=== PATIENT | female | born 1990 | race American Indian/Alaskan Native ===

== ENCOUNTER 2017-06-10 02:20 | Emergency (ER) | payer MEDICARE, MEDICAID ==
[2017-06-10 02:20] VITALS: BMI 38.9
[2017-06-10 02:44] VITALS: RESP 18; TEMP 98.2
--- NOTE | 2017-06-10 03:31 | ED PDOC ---
Arrival/HPI <Wing Medeiros - Last Filed: 06/10/17 04:28> - General Historian: Patient - History of Present Illness Time/Duration: < week <Deisi Covington - Last Filed: 06/10/17 06:07> - General Chief Complaint: Foreign Body Time Seen by Provider: 06/10/17 03:10 - History of Present Illness Narrative History of Present Illness (Text): 06/10/17 03:31 27 year old with past medical history of asthma presents to the ED after stepping a small piece of broken glass 2 days ago. Patient reports she was able to take out a small piece of glass from her foot initially, but she still feels pain whenever she steps with the left foot. Patient decided to come to the ED to be evaluated today. Denies having headache, fever, chills, shortness of breath, chest pain, nausea, vomiting, numbness or tingling sensation. (Deisi Covington) Past Medical History - Provider Review Nursing Documentation Reviewed: Yes - Past History Past History: No Previous - Infectious Disease Hx of Infectious Diseases: None - Tetanus Immunization Tetanus Immunization: Unknown - Cardiac Hx Cardiac Disorders: No - Pulmonary Hx Asthma: Yes - Neurological Hx Migraine: Yes - HEENT Hx HEENT Disorder: No - Renal Hx Renal Disorder: No - Endocrine/Metabolic Hx Endocrine Disorders: No - Hematological/Oncological Hx Blood Disorders: No - Integumentary Hx Dermatological Disorder: No - Musculoskeletal/Rheumatological Hx Musculoskeletal Disorders: No - Gastrointestinal Hx Gastroesophageal Reflux: Yes - Genitourinary/Gynecological Hx Genitourinary Disorders: No - Psychiatric Hx Anxiety: Yes Hx Bipolar Disorder: Yes Hx Depression: Yes Hx Post Traumatic Stress Disorder: Yes Hx Substance Use: Yes (marijuana) - Surgical History Hx Section: Yes (x3 last 2 weeks ago) Hx Cholecystectomy: Yes - Anesthesia Hx Anesthesia: Yes Hx Anesthesia Reactions: No Hx Malignant Hyperthermia: No <Deisi Covington - Last Filed: 06/10/17 06:07> Family/Social History - Physician Review Nursing Documentation Reviewed: Yes Family/Social History: Unknown Family HX Smoking Status: Former Smoker Hx Alcohol Use: Yes Frequency of alcohol use: Socially Hx Substance Use: Yes (marijuana) <Deisi Covington - Last Filed: 06/10/17 06:07> Allergies/Home Meds <Wing Medeiros - Last Filed: 06/10/17 04:28> <Deisi Covington - Last Filed: 06/10/17 06:07> Allergies/Adverse Reactions: Allergies oxycodone HCl [From Percocet] Allergy (Verified 06/10/17 02:45) ITCHING PCN Allergy (Uncoded 06/10/17 02:45) RASH Review of Systems - Physician Review All systems were reviewed & negative as marked: Yes - Review of Systems Constitutional: Normal. absent: Fatigue, Weight Change Eyes: Normal. absent: Vision Changes, Photophobia ENT: Normal. absent: Hearing Changes, Tinnitus Respiratory: Normal. absent: SOB, Cough Cardiovascular: Normal. absent: Chest Pain, Edema, Calf Pain, Syncope Gastrointestinal: Normal. absent: Abdominal Pain, Stool Changes, Nausea, Vomiting Genitourinary Female: Normal Musculoskeletal: Other (left foot pain with stepping) Skin: Normal. absent: Rash, Pruritis, Cellulitis Neurological: Normal. absent: Headache, Dizziness, Speech Changes Endocrine: Normal. absent: Diaphoresis Hemo/Lymphatic: Normal. absent: Adenopathy Psychiatric: Normal. absent: Anxiety <CovingtonDeisi - Last Filed: 06/10/17 06:07> Physical Exam Vital Signs Reviewed: Yes Temperature: Afebrile Blood Pressure: Normal Pulse: Regular Respiratory Rate: Normal Appearance: Positive for: Well-Appearing, Non-Toxic, Comfortable Pain Distress: None Mental Status: Positive for: Alert and Oriented X 3 - Systems Exam Head: Present: Atraumatic, Normocephalic Pupils: Present: PERRL Extroacular Muscles: Present: EOMI Conjunctiva: Present: Normal Mouth: Present: Moist Mucous Membranes Neck: Present: Normal Range of Motion Respiratory/Chest: Present: Clear to Auscultation, Good Air Exchange. No: Respiratory Distress, Accessory Muscle Use Cardiovascular: Present: Regular Rate and Rhythm, Normal S1, S2. No: Murmurs Abdomen: Present: Normal Bowel Sounds. No: Tenderness, Distention, Peritoneal Signs Back: Present: Normal Inspection Upper Extremity: Present: Normal Inspection. No: Cyanosis, Edema Lower Extremity: Present: Neurovascularly Intact, Other (small dark discoloration <1mm located at left plantar surface proximal to 2nd toe). No: Edema, Swelling, Erythema Neurological: Present: GCS=15, CN II-XII Intact, Speech Normal Skin: Present: Warm, Dry, Normal Color. No: Rashes Psychiatric: Present: Alert, Oriented x 3, Normal Insight, Normal Concentration <Deisi Covington - Last Filed: 06/10/17 06:07> Vital Signs Temp Pulse Resp BP Pulse Ox 06/10/17 04:43 75 18 132/66 99 06/10/17 02:40 98.2 F 78 18 129/54 L 100 Medical Decision Making <Wing Medeiros - Last Filed: 06/10/17 04:28> <Deisi Covington - Last Filed: 06/10/17 06:07> ED Course and Treatment: Impression: Pt seen and evaluated with medical nurse. Pt, whose past medical history includes asthma, presented s/p stepping on glass with her left foot 2 days prior. Pt complaining of pain to the area. Aware and agree with HPI, clinical findings, plan, and management. Plan: -- XR Right Foot -- Reassess and disposition (Wing Medeiros) 06/10/17 04:14 -Left foot xray -Reassess and disposition DDx: left foot foreign body Patient is not complaining of pain. No erythema, no swelling appreciated. No evidence of foreign body or glass noted on foot x ray. (Deisi Covington) - RAD Interpretation Narrative RAD Interpretations (Text): 06/10/17 04:23 Left foot X-ray showed no evidence of foreign body or glass fragment. (Deisi Covington) Radiology Orders: 06/10/17 03:29 FOOT RIGHT 3 VIEWS ROUTINE [RAD] Stat - PA / [employer] / Resident Statement NAREN has reviewed & agrees with the documentation as recorded. NAREN has examined the patient and agrees with the treatment plan. <Wing Medeiros - Last Filed: 06/10/17 04:28> - PA / [employer] / Resident Statement NAREN has reviewed & agrees with the documentation as recorded. NAREN has examined the patient and agrees with the treatment plan. <Deisi Covington - Last Filed: 06/10/17 06:07> Disposition/Present on Arrival <Wing Medeiros - Last Filed: 06/10/17 04:28> - Present on Arrival Any Indicators Present on Arrival: No History of DVT/PE: No History of Uncontrolled Diabetes: No Urinary Catheter: No History of Decub. Ulcer: No History Surgical Site Infection Following: None - Disposition Have Diagnosis and Disposition been Completed?: Yes Disposition Time: 04:24 Patient Plan: Discharge <Deisi Covington - Last Filed: 06/10/17 06:07> - Disposition Diagnosis: Left foot pain Disposition: HOME/ ROUTINE Condition: GOOD Discharge Instructions (ExitCare): Soft Tissue Foreign Body (ED) Additional Instructions: Ana Luisa Cisse, thank you for letting us take care of you today. Your provider was Dr. Medeiros. You were treated for left foot pain. The emergency medical care you received today was directed at your acute symptoms. If you were prescribed any medication, please fill it and take as directed. It may take several days for your symptoms to resolve. Return to the Emergency Department if your symptoms worsen, do not improve, or if you have any other problems. Please contact your doctor or call one of the physicians/clinics you have been referred to that are listed on the Patient Visit Information form that is included in your discharge packet. Bring any paperwork you were given at discharge with you along with any medications you are taking to your follow up visit. Our treatment cannot replace ongoing medical care by a primary care provider (PCP) outside of the emergency department. Instructed patient to follow up with PMD. Thank you for allowing the [facility] team to be part of your care today.
[2017-06-10 04:44] VITALS: BP 132/66; PULSE 75; O2SAT 99
--- NOTE | 2017-06-10 08:10 | RAD ---
PROCEDURE: Right Foot Radiographs. HISTORY: foreign body, glass in left foot COMPARISON: None. FINDINGS: BONES: Bone alignment and mineralization are normal. There is no acute fracture or bone destruction. JOINTS: Normal. SOFT TISSUES: Normal. OTHER FINDINGS: There is no radiopaque foreign body. IMPRESSION: No acute fracture, dislocation or radiopaque foreign body.
== END 2017-06-10 04:43 | disposition home or self-care (01) ==
LOC: ED 02:20
DX: M79.672 Pain in left foot (principal)

== ENCOUNTER 2019-04-17 13:40 | Emergency (ER) | payer MEDICAID, MEDICARE ==
[2019-04-17 14:04] VITALS: BMI 45.8
[2019-04-17 14:10] VITALS: RESP 18
[2019-04-17 15:12] LABS: ALB/GLOB RATIO 1.1 (1.1-1.8); ALT/SGPT 27 U/L (7-56); AST/SGOT 31 U/L (14-36); BLOOD UREA NITROGEN 13 mg/dL (7-21); CALCIUM 9.2 mg/dL (8.4-10.5); GFR NON-AFRICAN AMERICAN > 60
[2019-04-17 15:21] LABS: BASO # 0.01 K/mm3 (0.0-2.0); BASO % 0.1 % (0.0-3.0); EOS # 0.1 (0.0-0.7); HEMOGLOBIN 13.5 g/dL (12.0-16.0); LYMPH # 3.1 (1.2-3.4); MEAN CELL VOLUME 89.1 fl (80.0-105.0); MEAN CORPUSCULAR HEMOGLOBIN 29.5 pg (25.0-35.0); MEAN CORPUSCULAR HGB CONC 33.2 g/dl (31.0-37.0); MONO # 0.3 (0.1-0.6); MONO % 3.4 % (1.0-6.0); RBC 4.57 10^6/uL (3.5-6.1); RED CELL DISTRIBUTION WIDTH 12.7 % (11.5-14.5); WHITE BLOOD COUNT 9.9 10^3/uL (4.5-11.0)
[2019-04-17 15:30] LABS: URINE BILIRUBIN NEGATIVE (NEGATIVE); URINE BLOOD NEGATIVE (NEGATIVE); URINE GLUCOSE (UA) NEGATIVE (NEGATIVE); URINE LEUKOCYTE ESTERASE NEGATIVE Leu/uL (NEGATIVE); URINE PROTEIN NEGATIVE mg/dL (<30 mg/dL); URINE UROBILINOGEN 0.2 E.U./dL (<1 E.U./dL)
[2019-04-17 15:31] LABS: URINE APPEARANCE CLEAR (CLEAR); URINE COLOR YELLOW (YELLOW)
--- NOTE | 2019-04-17 15:41 | ED PDOC ---
Arrival/HPI - General Chief Complaint: High Blood Sugar Time Seen by Provider: 04/17/19 14:00 Historian: Patient - History of Present Illness Narrative History of Present Illness (Text): 04/17/19 17:30 29-year-old female presents today with concerns for elevated blood sugar. 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 She was the first 1 to have her sugar checked and the reading was 390. No medications were given and patient came to the emergency room for further evaluation as her mother is a diabetic. Patient has no history of diabetes. She denies fevers or chills. No chest pain or shortness of breath. She states she has a history of migraines for which she has a slight headache. Patient also states she has been having some urinary frequency and some increased thirst. Upon arrival to the ER the patient's fingerstick was 83. Patient was made aware that her fingerstick was 83 and she then stated that she did not need to be in the hospital if her sugar was good. Past Medical History - Provider Review Nursing Documentation Reviewed: Yes Primary Care Provider: Non [facility] Provider, - Travel History Have you recently traveled outside [place] w/in the past 3 mons?: No - Past History Past History: No Previous - Infectious Disease Hx of Infectious Diseases: None - Tetanus Immunization Tetanus Immunization: Unknown - Cardiac Hx Cardiac Disorders: No - Pulmonary Hx Asthma: Yes - Neurological Hx Migraine: Yes - HEENT Hx HEENT Disorder: No - Renal Hx Renal Disorder: No - Endocrine/Metabolic Hx Endocrine Disorders: No - Hematological/Oncological Hx Blood Disorders: No - Integumentary Hx Dermatological Disorder: No - Musculoskeletal/Rheumatological Hx Musculoskeletal Disorders: No - Gastrointestinal Hx Gastroesophageal Reflux: Yes - Genitourinary/Gynecological Hx Genitourinary Disorders: No - Psychiatric Hx Anxiety: Yes Hx Bipolar Disorder: Yes Hx Depression: Yes Hx Post Traumatic Stress Disorder: Yes Hx Substance Use: Yes (marijuana) - Surgical History Hx Section: Yes (x3 last 2 weeks ago) Hx Cholecystectomy: Yes - Anesthesia Hx Anesthesia: Yes Hx Anesthesia Reactions: No Hx Malignant Hyperthermia: No Family/Social History - Physician Review Nursing Documentation Reviewed: Yes Family/Social History: Unknown Family HX Smoking Status: Light Smoker < 10 Cigarettes Daily Hx Alcohol Use: Yes Hx Substance Use: Yes (marijuana) Allergies/Home Meds Allergies/Adverse Reactions: Allergies oxycodone HCl [From Percocet] Allergy (Verified 06/10/17 02:45) ITCHING PCN Allergy (Uncoded 06/10/17 02:45) RASH Home Medications: Home Meds Medication Instructions Recorded Confirmed ARIPiprazole [Abilify] 10 mg PO DAILY 04/17/19 04/17/19 Dextroamphetamine/Amphetamine 15 mg PO DAILY 04/17/19 04/17/19 [Adderall] Review of Systems - Review of Systems Constitutional: absent: Fatigue, Fevers Respiratory: absent: SOB, Cough Cardiovascular: absent: Chest Pain, Palpitations Gastrointestinal: absent: Abdominal Pain, Constipation, Diarrhea, Nausea, Vomiting Genitourinary Female: Frequency. absent: Dysuria, Hematuria Musculoskeletal: absent: Arthralgias, Back Pain, Neck Pain Skin: absent: Rash, Pruritis Neurological: Headache (hx of migraines). absent: Dizziness Psychiatric: absent: Anxiety, Suicidal Ideation Physical Exam Vital Signs Reviewed: Yes Vital Signs Temp Pulse Resp BP Pulse Ox 04/17/19 14:04 98.9 F 78 18 104/69 97 Temperature: Afebrile Blood Pressure: Normal Pulse: Regular Respiratory Rate: Normal Appearance: Positive for: Well-Appearing, Non-Toxic, Comfortable Pain Distress: None Mental Status: Positive for: Alert and Oriented X 3 Finger Stick Blood Glucose: 83 - Systems Exam Head: Present: Atraumatic Mouth: Present: Moist Mucous Membranes Neck: Present: Normal Range of Motion Respiratory/Chest: Present: Clear to Auscultation, Good Air Exchange. No: Respiratory Distress, Accessory Muscle Use Cardiovascular: Present: Regular Rate and Rhythm, Normal S1, S2. No: Murmurs Abdomen: No: Tenderness Back: Present: Normal Inspection Upper Extremity: Present: Normal ROM Lower Extremity: Present: Normal ROM Neurological: Present: GCS=15, Speech Normal Skin: Present: Warm, Dry, Normal Color. No: Rashes Psychiatric: Present: Alert, Oriented x 3 Medical Decision Making ED Course and Treatment: 04/17/19 17:34 pt is non toxic well appearing; no distress. stable vitals. fingerstick; 83. CBC; wnl CMP; wnl UA: wnl pt is nontoxic well-appearing no distress with stable vital signs. I have advised the patient of all lab results. I have advised the patient that she should follow-up with her primary care physician. Patient was advised to may return if symptoms worsen persist or if new concerning symptoms develop. Patient verbalizes understanding of discharge instructions and need for immediate followup. All aspects of this case were discussed the attending of record. Impression: Urinary frequency follow up with the primary care physician within the next 2 days increase fluids return immediately if symptoms worsen,persist or if new symptoms develop. - Lab Interpretations Lab Results: Total Bilirubin 0.4 mg/dL (0.2-1.3) 04/17/19 14:50 AST 31 U/L (14-36) 04/17/19 14:50 ALT 27 U/L (7-56) 04/17/19 14:50 Alkaline Phosphatase 69 U/L (38-126) 04/17/19 14:50 Total Protein 7.7 g/dL (5.8-8.3) 04/17/19 14:50 Albumin 4.0 g/dL (3.0-4.8) 04/17/19 14:50 Globulin 3.7 gm/dL 04/17/19 14:50 Albumin/Globulin Ratio 1.1 (1.1-1.8) 04/17/19 14:50 Urine Color Yellow (YELLOW) 04/17/19 14:50 Urine Appearance Clear (CLEAR) 04/17/19 14:50 Urine pH 6.0 (4.7-8.0) 04/17/19 14:50 Ur Specific [place] >= 1.030 (1.005-1.035) 04/17/19 14:50 Urine Protein Negative mg/dL (<30 mg/dL) 04/17/19 14:50 Urine Glucose (UA) Negative mg/dL (NEGATIVE) 04/17/19 14:50 Urine Ketones Negative mg/dL (NEGATIVE) 04/17/19 14:50 Urine Blood Negative (NEGATIVE) 04/17/19 14:50 Urine Nitrate Negative (NEGATIVE) 04/17/19 14:50 Urine Bilirubin Negative (NEGATIVE) 04/17/19 14:50 Urine Urobilinogen 0.2 E.U./dL (<1 E.U./dL) 04/17/19 14:50 Ur Leukocyte Esterase Negative Eduin/uL (NEGATIVE) 04/17/19 14:50 Disposition/Present on Arrival - Present on Arrival Any Indicators Present on Arrival: No History of DVT/PE: No History of Uncontrolled Diabetes: No Urinary Catheter: No History of Decub. Ulcer: No History Surgical Site Infection Following: None - Disposition Have Diagnosis and Disposition been Completed?: Yes Diagnosis: Urinary frequency Disposition: HOME/ ROUTINE Disposition Time: 15:37 Patient Plan: Discharge Condition: GOOD Discharge Instructions (ExitCare): Blood Glucose Test, How to Keep Track of Your Blood Sugar Additional Instructions: follow up with the primary care physician within the next 2 days increase fluids return immediately if symptoms worsen,persist or if new symptoms develop. Referrals: Aletha Olivares MD [Medical Doctor] - Follow up with primary [facility] [Outside] - Follow up with primary Forms: [facility] (Persian), WORK NOTE, SCHOOL NOTE
[2019-04-17 16:19] VITALS: BP 110/69; PULSE 80; TEMP 98.7; O2SAT 99
== END 2019-04-17 16:21 | disposition home or self-care (01) ==
LOC: ED 13:40
DX: R35.0 Frequency of micturition (principal); Z83.3 Family history of diabetes mellitus